=== PATIENT | female | born 1990 | race Caucasian/White ===

== ENCOUNTER 2016-06-01 14:25 | Emergency (ER) | payer MEDICAID ==
[~2016-06-01] VITALS: Ht 152.4 cm; Wt 79.0 kg
[2016-06-01] MEDS ORDERED: KETOROLAC 30MG/ML VIAL IV STA (18:12)
[2016-06-01] MEDS ORDERED: SODIUM CHLORIDE 0.9% 1,000 ML IV ONE (18:12)
[2016-06-01 18:36] LABS: CLARITY URINE TURBID (CLEAR); COLOR URINE DARK YELLOW (YELLOW); GLUCOSE URINE NEGATIVE (NEGATIVE); KETONES URINE NEGATIVE (NEGATIVE); LEUKOCYTE ESTERASE URINE 3+ (NEGATIVE); NITRITE URINE NEGATIVE (NEGATIVE); OCCULT BLOOD URINE 3+ (NEGATIVE); PH URINE 7.5 (4.5-8.0); PROTEIN URINE 2+ (NEGATIVE); SPECIFIC GRAVITY URINE 1.027 (1.005-1.030)
[2016-06-01 18:56] LABS: BASOPHILS % 0.3 % (0.0-2.0); EOSINOPHILS % 0.9 % (0.0-5.0); HEMATOCRIT. 37.7 % (36.0-48.0); HEMOGLOBIN. 12.9 g/dL (12.0-16.0); LYMPHOCYTES % 25.7 % (20.0-50.0); MEAN CORPUSCULAR HGB CONC 34.2 g/dL (31.0-37.0); MEAN CORPUSCULAR VOLUME 81.8 fL (81.0-99.0); MEAN PLATELET VOLUME 7.8 fl (7.4-10.4); MONOCYTES % 7.3 % (2.0-8.0); NEUTROPHILS % 65.8 % (40.0-76.0); PLATELET 279 x1000/uL (130-400); RED CELL DISTRIBUTION WIDTH 13.1 % (11.6-14.6); WHITE BLOOD COUNT 11.3 x1000/uL (4.5-11.0)
[2016-06-01 19:00] LABS: INR 1.1; PROTHROMBIN TIME 11.2 sec
[2016-06-01 19:01] LABS: BACTERIA URINE 1+; RBC URINE TNTC /hpf (0-2); SQUAMOUS EPITHELIAL CELL URINE 1+ /lpf (RARE/1+); WBC URINE TNTC /hpf (0-2)
[2016-06-01 19:03] LABS: ANION GAP 12; CALCIUM 8.8 mg/dL (8.5-10.1); CARBON DIOXIDE 28 mEq/L (21-32); CHLORIDE 106 mEq/L (98-107); INDEX HEMOLYSI 1 (1-3); INDEX ICTERIC 1 (1-4); INDEX LIPEMIC 1 (1-3); UREA NITROGEN BLOOD 8 mg/dL (7-21); eGFR > 60 mL/min (>60)
[2016-06-01 19:24] VITALS: BP 110/66
== END 2016-06-01 20:17 | disposition home or self-care (01) ==
LOC: ER 14:26
DX: N39.0 Urinary tract infection, site not specified (principal); I10 Essential (primary) hypertension; Z87.74 Personal history of (corrected) congenital malformations of heart and circulatory system
CPT/HCPCS: 36415; 80048; 81001; 81025; 85025; 85610; 96361; 96374; 99284; J1885; J7030; Z7610

== ENCOUNTER 2016-08-08 09:39 | Emergency (ER) | payer MEDICAID ==
[~2016-08-08] VITALS: Ht 160 cm; Wt 73.0 kg
[2016-08-08] MEDS ORDERED: ONDANSETRON HCL 4MG/2ML VIAL IV STA (10:03)
[2016-08-08] MEDS ORDERED: SODIUM CHLORIDE 0.9% 1,000 ML IV ONE (10:03)
[2016-08-08] MEDS ORDERED: KETOROLAC 30MG/ML VIAL IV ONE (10:15)
[2016-08-08 10:50] LABS: HCG SCREEN NEGATIVE
[2016-08-08] MEDS ORDERED: DIAZEPAM 5 MG TABLET PO ONE (12:15)
[2016-08-08 13:40] VITALS: BP 132/66
== END 2016-08-08 14:11 | disposition left against medical advice (07) ==
LOC: ER 09:46
DX: S16.1XXA Strain of muscle, fascia and tendon at neck level, initial encounter (principal); S40.021A Contusion of right upper arm, initial encounter; S89.91XA Unspecified injury of right lower leg, initial encounter; R51 Headache; I10 Essential (primary) hypertension; V99.XXXA Unspecified transport accident, initial encounter; V89.2XXA Person injured in unspecified motor-vehicle accident, traffic, initial encounter; Y93.89 Activity, other specified; Y92.89 Other specified places as the place of occurrence of the external cause; Y99.8 Other external cause status
CPT/HCPCS: 70486; 72125; 73080; 73090; 76705; 84703; 96361; 96374; 96375; 99285; J1885; J2405; J7030; Z7610; A4565

== ENCOUNTER 2016-11-06 15:57 | Emergency (ER) | payer SELFPAY ==
[~2016-11-06] VITALS: Ht 154.9 cm; Wt 75.0 kg
[2016-11-06] MEDS ORDERED: KETOROLAC 30MG/ML VIAL IV STA (17:10)
[2016-11-06] MEDS ORDERED: SODIUM CHLORIDE 0.9% 1,000 ML IV ONE (17:10)
[2016-11-06 18:16] LABS: BASOPHILS % 0.5 % (0.0-2.0); EOSINOPHILS % 0.4 % (0.0-5.0); HEMATOCRIT. 41.3 % (36.0-48.0); LYMPHOCYTES % 28.1 % (20.0-50.0); MEAN CORPUSCULAR HEMOGLOBIN 27.2 pg (28.0-32.0); MEAN CORPUSCULAR VOLUME 80.4 fL (81.0-99.0); MEAN PLATELET VOLUME 8.1 fl (7.4-10.4); MONOCYTES % 5.5 % (2.0-8.0); NEUTROPHILS % 65.5 % (40.0-76.0); PLATELET 302 x1000/uL (130-400); RED BLOOD CELL COUNT 5.14 mill/uL (4.2-5.4); RED CELL DISTRIBUTION WIDTH 13.2 % (11.6-14.6)
[2016-11-06 18:19] LABS: CHLORIDE 101 mEq/L (98-107)
[2016-11-06 18:20] LABS: PROTHROMBIN TIME 10.7 sec (9.4-11.6)
[2016-11-06 18:26] LABS: CARBON DIOXIDE 29 mEq/L (21-32)
[2016-11-06 20:20] VITALS: BP 131/73
== END 2016-11-06 20:33 | disposition home or self-care (01) ==
LOC: ER 17:05
DX: R07.9 Chest pain, unspecified (principal); I10 Essential (primary) hypertension
CPT/HCPCS: 36415; 71010; 80053; 85025; 85610; 93005; 96361; 96374; 99285; J1885; J7030; Z7610